=== PATIENT | female | born 1990 | race Two or more races ===

== ENCOUNTER 2017-10-30 22:44 | Emergency (ER) | payer SELFPAY ==
[~2017-10-30] VITALS: Ht 167.6 cm; Wt 71.2 kg
--- NOTE | 2017-10-30 22:55 | NUR ---
PT TO ER BED 1. BIBRA 89 FROM HOME FOR UNWITNESSED SYNCOPAL EPISODE, MOTHER DENIES TRAUMA PT ADMITS TO TAKING 1 MG ATIVAN 400MG TRAZADONE. 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 VSS/RESP EVEN UNLABORED/NAD NOTED/SKIN WARM AND DRY/AFEBRILE/DENIES N-V-D/AOX4. AWAITNG MD SOUSA.
--- NOTE | 2017-10-30 22:58 | NUR ---
AT BEDSIDE FOR EVAL.
[2017-10-30] MEDS ORDERED: IV NS 0.9% 1,000 ML BAG IV ONE (23:00)
--- NOTE | 2017-10-30 23:01 | NUR ---
EMT AT BEDSIDE FOR EKG.
--- NOTE | 2017-10-30 23:11 | NUR ---
LAB AT BEDSIDE FOR DRAW.
[2017-10-30 23:45] LABS: BASOPHILS % (AUTO) 0.6 % (0.0-2.0); EOSINOPHILS % (AUTO) 3.6 % (0.0-6.0); HEMATOCRIT 40 % (33-45); HEMOGLOBIN 13.2 g/dL (11.5-14.8); LYMPHOCYTES # (AUTO) 2.3 /CMM (0.8-4.8); LYMPHOCYTES % (AUTO) 29.1 % (20.0-44.0); MEAN CORPUSCULAR HGB CONC 33 g/dl (31.0-36.0); MEAN CORPUSCULAR VOLUME 93 fL (82-100); MONOCYTES # (AUTO) 0.5 /CMM (0.1-1.30); MONOCYTES % (AUTO) 6.5 % (2.0-12.0); NEUTROPHILS # (AUTO) 4.8 /CMM (1.8-8.9); NEUTROPHILS % (AUTO) 60.2 % (43.0-81.0); PLATELET COUNT (AUTO) 357 /CMM (150-450); RDW COEFFICIENT OF VARIATION 13.7 (11.5-15.0)
[2017-10-30 23:54] LABS: CALCIUM, SERUM 8.4 mg/dL (8.5-10.1); CREATININE 0.8 mg/dL (0.6-1.3); POTASSIUM 3.4 mmol/L (3.5-5.1)
--- NOTE | 2017-10-30 23:54 | NUR ---
URINE SPECIMEN OBTAINED AND SENT TO THE LAB.
[2017-10-31 00:13] LABS: APPEARANCE,URINE CLEAR (CLEAR); BILIRUBIN,URINE NEGATIVE (NEGATIVE); BLOOD, URINE NEGATIVE Ery/uL (NEGATIVE); COLOR,URINE YELLOW (YELLOW); KETONES,URINE NEGATIVE (NEGATIVE); LEUKOCYTE ESTERASE ,URINE NEGATIVE (NEGATIVE); NITRITE, URINE NEGATIVE (NEGATIVE); PH,URINE 6.5 (5.0-8.0); PROTEIN,URINE NEGATIVE (NEGATIVE); UGLUCOSE NEGATIVE (NEGATIVE); UROBILINOGEN,URINE 0.2 EU/dL (0.2)
--- NOTE | 2017-10-31 00:23 | NUR ---
PT TO CT VIA STRETCHER.
--- NOTE | 2017-10-31 01:24 | NUR ---
IV removed. Catheter intact and site benign. Pressure and 4x4 applied to site. No bleeding noted. Patient is awake and alert to self, day, and place. Patient ambulatory with a steady gait.
[2017-10-31 01:25] VITALS: BP 101/56
--- NOTE | 2017-10-31 01:25 | NUR ---
Patient discharged with mother to home in stable condition. Written and verbal after care instructions given. Patient verbalizes understanding of instruction.
== END 2017-10-31 01:26 | disposition home or self-care (01) ==
LOC: ER 22:46
DX: T43.211A Poisoning by selective serotonin and norepinephrine reuptake inhibitors, accidental (unintentional), initial encounter (principal); R55 Syncope and collapse; F41.9 Anxiety disorder, unspecified; Y92.89 Other specified places as the place of occurrence of the external cause
CPT/HCPCS: 36415; 70450; 80048; 80305; 81001; 82962; 84703; 85025; 93005; 96360; 99285; A4606; J7030; Z7610; 81000-TC